=== PATIENT | female | born 1985 ===

== ENCOUNTER 2023-06-08 15:00 | Outpatient (RCR) | payer BC ==
[~2023-06-08 15:00] MED LIST: ALLEGRA180 MG PO; BCP; DROSPIRENONE; ESCITALOPRAM; LORTAB 7.5/5001 TAB PO; [UNRECOGNIZED DRUG - REMARK]
== END 2023-06-23 | disposition home or self-care (01) ==
LOC: WSST
DX: R41.3 Other amnesia (principal); S06.89 Other specified intracranial injury

== ENCOUNTER 2023-07-22 14:00 | Outpatient (RCR) | payer BC | END 2023-07-23 | disposition home or self-care (01) | LOC: WSST | DX: S06.9X2 Unspecified intracranial injury with loss of consciousness of 31 minutes to 59 minutes (principal); R41.3 Other amnesia ==

== ENCOUNTER 2024-02-19 11:07 | Outpatient (RCR) | payer BC | END 2024-02-21 | LOC: WSPT | DX: M54.2 Cervicalgia (principal); F07.81 Postconcussional syndrome; G35 Multiple sclerosis ==